=== PATIENT | female | born 1955 | race Caucasian/White ===

== ENCOUNTER → 2019-03-08 12:08 | Outpatient (CLI) | payer MEDICARE, OTHER, SELFPAY ==
[2019-03-08 12:46] LABS: Add Manual Diff / Slide Review NO; Basophils Absolute Auto 100 /uL (0-100); Basophils Percent Auto 0.8 % (0-2); Eosinophils Absolute Auto 100 /uL (0-450); Eosinophils Percent Auto 1.7 % (2-4); Hemoglobin 14.8 g/dL (12.0-16.0); Lymphocytes Absolute Auto 1900 /uL (1100-4500); Lymphocytes Percent Auto 27.7 % (25-40); Mean Corpuscular HGB Conc 35.1 % (30-36); Mean Corpuscular Hemoglobin 29.6 PG (26-34); Mean Corpuscular Volume 84.2 fL (80-100); Monocytes Absolute Auto 600 /uL (0-900); Monocytes Percent Auto 8.3 % (3-14); Neutrophils Absolute Auto 4200 /uL (1500-7000); Neutrophils Percent Auto 61.5 % (50-75); Platelet Count 200 X10^3/uL (150-400); Red Blood Cell Count 4.99 X10^6/uL (4.0-5.2); Red Cell Distribution Width 13.5 % (11.6-14.8); White Blood Cell Count 6.8 X10^3/uL (4.5-11.0)
[2019-03-08 15:11] LABS: Carbon Dioxide 26 mmol/L (22-32); Chloride 103 mmol/L (98-107); HEMOLYSIS < 15 (0-50); Potassium 4.3 mmol/L (3.4-5.1); Sodium 138 mmol/L (137-145)
== END ==
PROVIDERS: Visit Provider Orthopaedic Surgery
DX: M16.10 Unilateral primary osteoarthritis, unspecified hip (principal)
CPT/HCPCS: 36415; 80051; 85025; 93005

== ENCOUNTER 2019-04-11 09:27 | Inpatient (IN) | payer MEDICARE, OTHER, SELFPAY ==
[2019-03-28 14:01] VITALS: BMI 30.1
[2019-04-11] VITALS (11 sets, daily range): BP systolic 101–131; BP diastolic 37–75; PULSE 62–93; RESP 12–18; TEMP 36.3–36.7; O2SAT 92–99; BMI 29.0
[2019-04-11] MEDS: ACETAMINOPHEN 325 MG TABLET 975 MG PO ×3 (10:12→22:10)
[2019-04-11] MEDS: PREGABALIN 75 MG CAPSULE PO (10:12)
[2019-04-11] MEDS: LACTATED RINGERS 1,000 ML 42 ML IV ×2 (10:15→15:24)
--- NOTE | 2019-04-11 11:45 | DI.RAD.S_ITS ---
PROCEDURE: XR PELVIS 1-2V INDICATIONS: post op films TECHNIQUE: 1 view of the lower pelvis acquired. COMPARISON: Preoperative left hip radiographs 03/08/2019. FINDINGS: Bones: Patient is status post left hip total arthroplasty, with hardware components in expected positions. The hip joint appears congruent. The visualized bony structures appear intact. Prominent left superior acetabular osteophyte. Small bone island in the left inferior pubic ramus. Severe joint space loss of the right hip joint. Soft tissues: Overlying postoperative changes are noted. No suspicious soft tissue densities. IMPRESSION: Satisfactory appearance of the left total hip arthroplasty. Dictated by: Trent Mcgill M.D. on 04/11/2019 at 16:49 Approved by: Trent Mcgill M.D. on 04/11/2019 at 16:52
--- NOTE | 2019-04-11 12:31 | PC.NURSE ---
Day shift: Pt not on AC unit at this time.
--- NOTE | 2019-04-11 13:16 | PM.PREOP ---
Pre-operative Note Interval Note History & Physical reviewed/Exam performed by Physician: Yes Changes to H&P: No
[2019-04-11] MEDS: CLINDAMYCIN 900 MG/50 ML PIGGYBACK 50 MG IV (13:54)
[2019-04-11] MEDS: TRANEXAMIC ACID 1,000 MG VIAL 1000 MG INJ ×2 (14:20→15:12)
--- NOTE | 2019-04-11 14:32 | SUR.OPER ---
Lateral on padded OR bed. Gel axillary roll. Arms secured on padded armboard with pillow supporting top arm. Padded hip positioner braces x4 - anterior and posterior chest and pelvis. Additional gel pad used anterior pelvis. Gel pad under bottom leg from knee to foot and secured with tape over sheet.
[2019-04-11] MEDS: MORPHINE 4 MG/ML INJ INJ (14:41)
[2019-04-11] MEDS: KETOROLAC 30 MG/ML VIAL IV (14:41)
[2019-04-11] MEDS: ROPIVACAINE 0.5% PF 5 MG/ML 20ML VIAL 60 ML INJ (14:41)
--- NOTE | 2019-04-11 15:27 | PM.OP.1 ---
Operative Date/Time/Diagnoses Date of procedure: 04/11/19 Time of procedure: 15:27 Pre-op diagnosis: Left hip degenerative joint disease Post-op diagnosis: same Procedure & Clinicians Procedure: Left total hip arthroplasty (CPT code 67613 with assistant professor of criminal justice) Same procedure as scheduled: Yes Indications: Patient is an 63-year-old female with severe left hip DJD. The patient has pain with activities and at rest, limited ambulation and activity tolerance, difficulties with ADLs, and failure of conservative treatment. We have discussed the nature of condition, treatment options, risks and benefits, and patient elects to proceed with total hip arthroplasty and gives informed consent. Surgeon: Luis Enrique Montoya Residential Carpet Installer: Issa Doe Anesthesia Type: General and Spinal Operative Notes Closure Type: primary Specimen(s): none sent Prosthetic devices, grafts, tissues, transplants, or devices: Acetabulum: Leblanc and Nephew R3 acetabular component size 50 mm Femoral component: Leblanc and Nephew Anthology stem size 5 with standard offset Femoral head: 32 mm + 4 Oxinium Estimated Blood Loss (mL): 100 Blood products transfused: none Procedure in detail: After satisfaction induction of anesthetic, and administration of IV antibiotics, the patient was positioned in the lateral decubitus position with all bony prominences well padded and pelvic position secured using a hip coding validator positioning device. Left hip and lower extremity prepped and draped in the usual sterile fashion, 1st dose of intravenous tranexamic acid was administered, then a longitudinal incision was created centered over the greater trochanter and carried sharply through the skin and subcutaneous tissues down to the fascia santos which was divided longitudinally and retracted with a Charnley retractor. External rotators visualize, cut, tagged, and retracted posteriorly, then the capsule was cut in a T-type fashion with the corners tagged and retracted. Hip was dislocated and femoral neck cut made according to preoperative templating. Acetabular retractors then placed, and the acetabular labrum and osteophytes were excised. The acetabulum was then sequentially reamed to 49 mm with an excellent circumferential ream and fit with the trial. The trial component was removed and a permanent size 50 mm Leblanc and Nephew R3 acetabular component was selected, positioned, and impacted with satisfactory position and fixation achieved. Permanent liner was then inserted with the elevated lip directed posteriorly. Soft tissue then removed off the lateral femoral neck in the lateral neck was entered using a box osteotome. T-handled reamers placed down the canal followed by sequential broaching to 5 with the final broach left in place for trial reduction which demonstrated excellent leg length, range of motion, and stability characteristics with a 32 mm + 4 trial ball. The trial and broach were removed, and a permanent size 5 Leblanc and Nephew Anthology stem was selected and inserted with excellent position and fixation achieved. Another trial reduction yielded the above characteristics so the trial ball was exchanged for a permanent 32 mm + 4 Oxinium ball. The hip was irrigated and reduced and excellent leg length range of motion and stability characteristics were achieved and maintained. Periarticular tissues were infiltrated with ropivacaine, morphine, and Toradol. The hip was copiously irrigated, and the capsule repaired with #2 Ethibond, and the piriformis was repaired back to the greater trochanter with the same. Fascia santos closed with interrupted #1 Ethibond sutures, and the subcutaneous tissues were closed in 2 layers of 0 Vicryl and 2 0 Vicryl. Skin was closed with venice and sterile dressings applied. Second dose of tranexamic acid was administered intravenously, and the anesthetic was terminated. Complications: none Post-operative Condition: stable Disposition: PACU Plan for aftercare: Patient will be admitted to the acute care [facility], and anticipate discharge on postop day 1 with follow-up in office in 10-14 days. Outpatient physical therapy will be arranged and patient will continue to observe posterior hip precautions. Patient will continue use of postoperative Lovenox for 10 days postop.
--- NOTE | 2019-04-11 15:50 | SUR.PHASEI ---
Report to YUSEF Byrd
[2019-04-11] MEDS: LACTATED RINGERS 1,000 ML 125 ML IV (17:34)
[2019-04-11] MEDS: IBUPROFEN 400 MG TABLET 800 MG PO ×2 (18:49→23:28)
[2019-04-11] MEDS: CEFAZOLIN 2 GM/100 ML FROZ.PIGGY IV (22:43)
[2019-04-12] MEDS: CEFAZOLIN 2 GM/100 ML FROZ.PIGGY IV (05:46)
[2019-04-12 05:50] VITALS: BP 141/76; PULSE 84; RESP 16; TEMP 36.2; O2SAT 92
[2019-04-12 06:34] LABS: Hematocrit 37.9 % (36-46)
--- NOTE | 2019-04-12 07:27 | PM.DS.1 ---
History of Present Illness History of Present Illness Date Patient Seen: 04/12/19 Time Patient Seen: 07:27 Chief complaint: [id number] Narrative: Patient is an 63-year-old female with severe left hip DJD. The patient has pain with activities and at rest, limited ambulation and activity tolerance, difficulties with ADLs, and failure of conservative treatment. We have discussed the nature of condition, treatment options, risks and benefits, and patient elects to proceed with total hip arthroplasty and gives informed consent. Discharge Providers Provider Date of admission: 04/11/19 09: Discharge Date: 04/12/19 Consults: 04/11/19 16:32 Consult to Discharge Planning Routine Comment: Consult to Physical Therapy Evaluate & Treat Comment: Physician Instructions: post op LUIS CARLOS protocol Consult to Respiratory Therapy Evaluate & Treat Comment: Physician Instructions: Evaluate and treat Discharge provider: Perla Noel PA-C Summary Hospital Course Discharge Diagnosis: s/p total hip arthroplasty barretts esophagus Hospital Course: Christina was admitted for a left total hip arthroplasty with Dr. Montoya. Hospital course was unremarkable. On postop day 1 patient was ready to discharge home. She is eating and voiding without difficulty or assistance. She worked with physical therapy throughout her stay. Lovenox for VTE prophylaxis. Status at Discharge Functional status at discharge: uses cane/walker Exam Vital Signs (past 8 hours): - 04/11/19 23:30 04/12/19 05:50 Temperature 97.3 F L 97.2 F L Pulse Rate 84 84 Respiratory Rate 16 16 Blood Pressure 118/69 141/76 H Pulse Oximetry 96 92 Oxygen Delivery Method Room Air Oxygen Flow Rate 0 Narrative Exam Narrative: Patient lying in bed in NAD. She is alert and oriented X3. Calves are soft, compressible, and nontender bilaterally. Pulses are symmetrical. Dressing CDI. Patient's pain well controlled. She has her medications at home. She has outpatient physical therapy scheduled. Objective Labs Result Diagrams: 04/12/19 06:12 Labs: Laboratory Results - last 24 hr 04/12/19 06:12 Hgb 13.0 Hct 37.9 Discharge Plan Discharge Plan Patient Disposition: Home Discharge Med Rec/Prescriptions Prescriptions: New acetaminophen 325 mg Tablet 975 mg PO TID Qty: 60 RF: 0 enoxaparin [Lovenox] 40 mg/0.4 mL Syringe 40 mg subcut DAILY Qty: 9 RF: 0 Follow up/Referrals: Luis Enrique Montoya MD [Physician] - (Follow up in 10-14 days with CARLOS) Provider Discharge Instructions Cold/Heat Therapy: as needed Skin/Wound/Dressing Care Report to your healthcare provider any signs of infection, such as:: chills, fever and increased pain Visit Report/Discharge Packet Instructions: DI for Hip Replacement, Enoxaparin Injection, Acetaminophen, Hydroxyzine Visit Report Forms: Stroke Signs & Symptoms Discharges patient from system. Discharge Date/Time: 04/12/19 11:09 Quality VTE Deep Vein Thrombosis/Pulmonary Embolism Present on Admission: No
[2019-04-12 08:10] VITALS: BP 137/79; PULSE 80; RESP 15; TEMP 36.2; O2SAT 97
[2019-04-12] MEDS: IBUPROFEN 400 MG TABLET 800 MG PO (08:30)
[2019-04-12] MEDS: ACETAMINOPHEN 325 MG TABLET 975 MG PO (08:31)
[2019-04-12] MEDS: ENOXAPARIN 40 MG/0.4 ML SYRINGE SUBCUT (08:32)
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
--- NOTE | 2019-04-12 11:07 | PC.NURSE ---
Day shift: Pt left unit at approx 1110 in WC to private car. Heading home to [facility] w/ spouse and son. Paperwork is signed and all questions answered. Pt [facility] and has all meds. New script today for Lovenox and Pt was shown and gave her sown injection this AM. Pt has all personal belongings.
--- NOTE | 2019-04-12 11:35 | CM.DANOTE ---
DCP/Assessment: Reviewed chart. Patient is a 63yr old female admitted to [facility] for left LUIS CARLOS performed on 04-11-[address] Montoya. PCP is NED Bailey. Primary payor is 1)Medicare 2)[employer]. Met with patient and spouse/Rich at bedside explained CM/SW role. Patient alert and oriented at time of visit and reports that she will be discharging home today. Patient cleared by therapy and has all needed DME. Patient planning to do outpatient therapy at [facility] in [place]. No identified d/c planning needs at this time. Patient a [facility] patient and has been educated by orthopedic team on next steps and what to expect. P: Home with supportive spouse. Discharge Planning/Care Management CM Discharge Assessment Start: 04/12/19 11:25 Freq: Status: Discharge Protocol: Document 04/12/19 11:26 [facility] (Rec: 04/12/19 11:35 [facility] [id number]) Discharge Planning Assessment Assigned Sheep And Wheat Farmer TIMMY Tena Contact Information Catrachito Kang (spouse) Advance Directives? No History Provided By Patient,Significant Other, Medical Record Has Patient been admitted in last 30 No days? Prior Living Arrangements House Household Members spouse,children Type of transporation used prior to Drives own vehicle admit Independent with ADL's Yes Is patient alert and oriented? Yes Caregiver for Another No DME Already Rented / Owned Bath Bench,FWW / Walker Patient/Family Preference OP PT Therapy Barriers to Discharge No Discharge Plan Home Transportation Arrangement Family to provide transport. Referrals Initiated None needed Whiteboard Updated in Patient Room with Yes name and ext. # of Sheep And Wheat Farmer Review Status In Process Next Review Type Continued Stay Review Pre-Anesthesia Assessment Start: 03/28/19 14:01 Freq: Status: Discharge Protocol: Document 03/28/19 14:01 [facility] (Rec: 03/28/19 14:38 [facility] [id number]) Pre-Anesthesia Assessment Patient Information Reviewed Via Phone Assessment Assessment Completed With Patient Diagnostic Results CBC,EKG,Electrolytes Comment Labs/EKG @ 03/08/19 Primary Care Provider Cassidy Valdez Seen Specialist in Last 12 Months Yes Specialist Seen Orthopedist,Other Comment Accupuncture Primary Language Croatian Braided Rug Maker Required No Height 165.1 cm Weight 82.1 kg Body Mass Index (BMI) 30.1 Hearing Ability Normal Visual Assist Glasses Dentition Type Teeth, Natural Present,Dental Implants Barriers to Learning None Other Aids Yes: immigration guard Hx Anesthesia Reactions Yes: Delayed reaction of shaking with versed, fentanyl s/p EGD Hx Family Anesthesia Reaction No Hx Malignant Hyperthermia No Hx Blood Transfusions No Anesthesia Review Requested No alcohol intake current alcohol intake frequency a few times a month Smoking Status Former smoker how long ago did patient quit smoking Quit when pt was in her early 20's Substance Use Type does not use Pain Present Pain Reported Musculoskeletal Symptoms Abnormal Gait,Difficulty Walking,Joint Pain,Muscle Cramps History of Falling (Recent or History of Yes ) Patient is completely paralyzed or No completely immobile Mental Status Oriented to own ability Is patient on oxygen? No Does patient have DIAZ/SOB No Hx Sleep Apnea No Currently Taking a Beta Rain No Can You Climb a Flight of Stairs Without Yes SOB Hx Chest Pain No Hx SOB No Hx Syncope or Dizziness Yes: Hx syncope age 17 Anti-Coagulant Therapy No Has a Graduate Teaching Assistant No Cardiac Testing No Hx Pacemaker/ICD No Pacemaker Rep Required? No Cardiac Clearance Received Not Applicable Diet Type At Home Regular dysphagia No Bladder Pattern Nocturia Urinary Catheter Present No Hx Urinary Self Catheterization No Diabetes No Patient No Lactating No Hx Drug Resistant Organism No Have you traveled outside the [place] in the last 30 days? Marital Status Lives With spouse,children Prior Living Arrangements House Number of Floors (Floors) One Floor Support System Child/Children,Spouse Does the Patient Have Assistance After Yes Surgery Patient Discharge Plan Description Return Home Comment Pt advised 1 day length of stay per surgeon's office Feels Safe in Current Environment Yes Been Physically Hurt or Threatened By a No Person in Current Environment Do you have thoughts of harming yourself None or others? Are you currently considering suicide? No Do you have a plan to hurt yourself or No Plan others? Do You Have Any Spiritual Beliefs That No May Affect Your HC Choices? Do You Have Any Cultural Practices That No May Affect Your HC Choices? Who Can We Speak to About Patient's Care Family, friends Identifying Code for Release of Patient Declines to issue Information Health Care Proxy/Next of Kin Catrachito () Health Care Proxy Emergency Contact Name Dima (son) Emergency Contact Advance Directives? No: Declines further information PAC Instructions Do not shave/clip surgical site,Durable medical equipment ,Medications to take/avoid, Nasal antibiotic,No ETOH/ petroleum product on skin DOS, NPO,Post-op transportation,Pre -surgical wash,Sturdy shoes/ comfortable clothes,Do not bring valuables and remove jewelry
== END 2019-04-12 11:09 | disposition home or self-care (01) | DRG 470 ==
PROVIDERS: Admitting Provider Orthopaedic Surgery; Visit Provider Orthopaedic Surgery
PROC: 0SRB0JZ Replacement of Left Hip Joint with Synthetic Substitute, Open Approach (ICD-10-PCS; CPT 27130; principal; 2019-04-11 11:45)
DX: M16.12 Unilateral primary osteoarthritis, left hip (principal); Z87.891 Personal history of nicotine dependence
CPT/HCPCS: 36415; 72170; 85014; 85018; 97161; 97165; 97530; 97535; C1776; J0690; J1100; J1650; J1885; J2250; J2270; J2405; J2704; J3010

== ENCOUNTER → 2020-02-15 13:08 | Outpatient (CLI) | payer MEDICARE, OTHER, SELFPAY ==
[2019-04-11 16:33] VITALS: BMI 29.0
[2020-02-15 14:19] LABS: Add Manual Diff / Slide Review NO; Basophils Absolute Auto 0 /uL (0-100); Basophils Percent Auto 0.6 % (0-2); Eosinophils Absolute Auto 100 /uL (0-450); Hematocrit 39.8 % (36-46); Hemoglobin 13.9 g/dL (12.0-16.0); Lymphocytes Absolute Auto 1700 /uL (1100-4500); Lymphocytes Percent Auto 22.1 % (25-40); Mean Corpuscular HGB Conc 34.9 % (30-36); Mean Corpuscular Hemoglobin 29.5 PG (26-34); Mean Corpuscular Volume 84.6 fL (80-100); Monocytes Absolute Auto 500 /uL (0-900); Monocytes Percent Auto 6.7 % (3-14); Neutrophils Absolute Auto 5200 /uL (1500-7000); Neutrophils Percent Auto 69.6 % (50-75); Platelet Count 188 X10^3/uL (150-400); Red Blood Cell Count 4.71 X10^6/uL (4.0-5.2); White Blood Cell Count 7.5 X10^3/uL (4.5-11.0)
[2020-02-15 14:52] LABS: Carbon Dioxide 26 mmol/L (22-32); Chloride 104 mmol/L (98-107); HEMOLYSIS < 15 (0-50); Potassium 4.3 mmol/L (3.4-5.1); Sodium 138 mmol/L (137-145)
== END ==
PROVIDERS: Referring Provider Orthopaedic Surgery; Visit Provider Orthopaedic Surgery
DX: Z01.818 Encounter for other preprocedural examination (principal); Z01.812 Encounter for preprocedural laboratory examination
CPT/HCPCS: 36415; 80051; 85025; 93005

== ENCOUNTER → 2020-03-11 09:43 | Outpatient (CLI) | payer MEDICARE, OTHER, SELFPAY ==
[2019-04-11 16:33] VITALS: BMI 29.0
[2020-03-12 11:13] LABS: COVID19 Sendout Not Detected (Not Detect)
== END ==
PROVIDERS: Visit Provider Nurse Practitioner
DX: Z11.59 Encounter for screening for other viral diseases (principal)
CPT/HCPCS: 87635

== ENCOUNTER 2020-03-14 06:13 | Day surgery (SDC) | payer MEDICARE, OTHER, SELFPAY ==
[2019-04-11 16:33] VITALS: BMI 29.0
[2020-03-07 10:02] VITALS: BMI 28.0
[2020-03-14] VITALS (13 sets, daily range): BP systolic 86–149; BP diastolic 45–82; PULSE 7–83; RESP 11–17; TEMP 35.9–36.7; O2SAT 94–98; BMI 28.0
--- NOTE | 2020-03-14 06:00 | DI.RAD.S_ITS ---
PROCEDURE: XR PELVIS 1-2V INDICATIONS: post op films TECHNIQUE: 1 view of the lower pelvis acquired. COMPARISON: [facility], , XR PELVIS 1-2V, 04/11/2019, 15:42. FINDINGS: Bones: Patient is status post right hip arthroplasty, with hardware components in expected positions. The hip joint appears congruent. The visualized bony structures appear intact. Soft tissues: Overlying postoperative changes are noted. No suspicious soft tissue densities. IMPRESSION: Normal alignment after right total hip arthroplasty, prior left total hip arthroplasty shows no evidence of loosening or disruption. Dictated by: Reyes Bermudez M.D. on 03/14/2020 at 9:47 Approved by: Reyes Bermudez M.D. on 03/14/2020 at 9:48
[2020-03-14] MEDS: ACETAMINOPHEN 325 MG TABLET 975 MG PO (06:50)
[2020-03-14] MEDS: CELECOXIB 200 MG CAPSULE PO (06:51)
[2020-03-14] MEDS: LACTATED RINGERS 1,000 ML 42 ML IV ×2 (07:00→09:30)
--- NOTE | 2020-03-14 07:45 | PM.PREOP ---
Pre-operative Note COVID-19 COVID-19 status: Negative Result date/Date tested (Pos, Neg/Pending): 03/12/20 Interval Note History & Physical reviewed/Exam performed by Physician: Yes Changes to H&P: No
[2020-03-14] MEDS: CLINDAMYCIN 900 MG/50 ML PIGGYBACK 50 MG IV (07:57)
[2020-03-14] MEDS: TRANEXAMIC ACID 1,000 MG VIAL 1000 MG INJ ×2 (08:25→09:10)
[2020-03-14] MEDS: MORPHINE 4 MG/ML INJ INJ (08:39)
[2020-03-14] MEDS: KETOROLAC 30 MG/ML VIAL IV (08:39)
[2020-03-14] MEDS: ROPIVACAINE 0.5% PF 5 MG/ML 20ML VIAL 60 ML INJ (08:39)
--- NOTE | 2020-03-14 09:32 | PM.OP.1 ---
Operative Date/Time/Diagnoses Date of procedure: 03/14/20 Time of procedure: 09:32 Pre-op diagnosis: Right hip degenerative joint disease Post-op diagnosis: same Procedure & Clinicians Procedure: Right total hip arthroplasty (CPT code 50089 with health information assistant) Same procedure as scheduled: Yes Indications: Patient is an 64-year-old female with severe right hip DJD. The patient has pain with activities and at rest, limited ambulation and activity tolerance, difficulties with ADLs, and failure of conservative treatment. We have discussed the nature of condition, treatment options, risks and benefits, and patient elects to proceed with total hip arthroplasty and gives informed consent. Surgeon: Luis Enrique Montoya Computer Systems Architect: Issa Doe Anesthesia Type: Spinal Operative Notes Closure Type: primary Specimen(s): none sent Prosthetic devices, grafts, tissues, transplants, or devices: Acetabulum: Leblanc and Nephew R3 acetabular component size 50 mm Femoral component: Leblanc and Nephew Anthology stem size 6 with standard offset Femoral head: 32 mm + 0 Oxinium Estimated Blood Loss (mL): 100 Blood products transfused: none Procedure in detail: After satisfaction induction of anesthetic, and administration of IV antibiotics, the patient was positioned in the lateral decubitus position with all bony prominences well padded and pelvic position secured using a hip owner consulting engineer positioning device. Right hip and lower extremity prepped and draped in the usual sterile fashion, 1st dose of intravenous tranexamic acid was administered, then a longitudinal incision was created centered over the greater trochanter and carried sharply through the skin and subcutaneous tissues down to the fascia santos which was divided longitudinally and retracted with a Charnley retractor. External rotators visualize, cut, tagged, and retracted posteriorly, then the capsule was cut in a T-type fashion with the corners tagged and retracted. Hip was dislocated and femoral neck cut made according to preoperative templating. Acetabular retractors then placed, and the acetabular labrum and osteophytes were excised. The acetabulum was then sequentially reamed to 49 mm with an excellent circumferential ream and fit with the trial. The trial component was removed and a permanent size 50 mm Leblanc and Nephew R3 acetabular component was selected, positioned, and impacted with satisfactory position and fixation achieved. Permanent liner was then inserted with the elevated lip directed posteriorly. Soft tissue then removed off the lateral femoral neck in the lateral neck was entered using a box osteotome. T-handled reamers placed down the canal followed by sequential broaching to 6 with the final broach left in place for trial reduction which demonstrated excellent leg length, range of motion, and stability characteristics with a 32 mm +0 trial ball. The trial and broach were removed, and a permanent size 6 Leblanc and Nephew Anthology stem was selected and inserted with excellent position and fixation achieved. Another trial reduction yielded the above characteristics so the trial ball was exchanged for a permanent 32 mm +0 Oxinium ball. The hip was irrigated and reduced and excellent leg length range of motion and stability characteristics were achieved and maintained. Periarticular tissues were infiltrated with ropivacaine, morphine, and Toradol. The hip was copiously irrigated, and the capsule repaired with #2 Ethibond, and the piriformis was repaired back to the greater trochanter with the same. Fascia santos closed with interrupted #1 Ethibond sutures, and the subcutaneous tissues were closed in 2 layers of 0 Vicryl and 2 0 Vicryl. Skin was closed with venice and sterile dressings applied. Second dose of tranexamic acid was administered intravenously, and the anesthetic was terminated. Complications: none Post-operative Condition: stable Disposition: PACU Plan for aftercare: Patient will be admitted to the acute care [facility], and anticipate discharge on postop day 1 with follow-up in office in 10-14 days. Outpatient physical therapy will be arranged and patient will continue to observe posterior hip precautions. Patient will continue use of postoperative aspirin for 6 weeks postop for DVT prophylaxis.
--- NOTE | 2020-03-14 10:07 | PC.NURSE ---
Day shift admit note: Received patient from PACU S/P scheduled right LUIS CARLOS scheduled by Dr. Montoya. Awake, alert, and pleasant. On RA sats 98%, SCDs placed upon arrival. VSS and afebrile. Oriented to room, environment, and plan of care. High fall risk precautions initiated, call light within reach.
[2020-03-14] MEDS: LACTATED RINGERS 1,000 ML 125 ML IV ×2 (10:45→18:54)
[2020-03-14] MEDS: CALCIUM CARBONATE 500 MG TAB PO (11:58)
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
[2020-03-14] MEDS: ACETAMINOPHEN 325 MG TABLET 650 MG PO ×2 (15:59→21:31)
[2020-03-14] MEDS: ASPIRIN EC 81 MG TABLET PO (21:31)
[2020-03-15 00:35] VITALS: BP 157/66; PULSE 93; RESP 16; TEMP 36.8; O2SAT 97
[2020-03-15 05:07] LABS: Hematocrit 36.8 % (36-46); Hemoglobin 12.6 g/dL (12.0-16.0)
[2020-03-15 05:24] VITALS: BP 133/71; PULSE 77; RESP 16; TEMP 36.9; O2SAT 97
[2020-03-15] MEDS: ASPIRIN EC 81 MG TABLET PO (07:25)
[2020-03-15] MEDS: ACETAMINOPHEN 325 MG TABLET 650 MG PO (07:25)
[2020-03-15 07:40] VITALS: BP 146/76; PULSE 74; RESP 16; TEMP 36.4; O2SAT 99
--- NOTE | 2020-03-15 09:43 | PT.IPTN ---
Current Diagnoses Unilateral primary osteoarthritis, right hip (03/14/20) Surgery Performed Operation Date: 03/14/20 07:45 Actual Procedures p Total Hip Arthroplasty(Right) - Luis Enrique Montoya MD Physical Therapy Treatment Note M2 PT-IP Current Condition Start: 03/14/20 13:28 Freq: NEEDED Status: Discharge Protocol: Document 03/14/20 14:43 HH (Rec: 03/14/20 15:01 HH [id number]) Physical Therapy Current Condition Current Condition Evaluation Date 03/14/20 Treatment Diagnosis R LUIS CARLOS (posterior approach), difficulty in walking Onset Date 03/14/20 Precautions Posterior Hip Precautions No Hip Flexion > 90 degrees,No Hip Internal Rotation,No Hip Adduction Weight Bearing Status Weight Bearing Status Weight Bear as Tolerated M3 PT-IP Subjective Start: 03/14/20 13:28 Freq: NEEDED Status: Discharge Protocol: Document 03/15/20 09:23 KS (Rec: 03/15/20 13:02 KS [id number]) Subjective Physical Therapy Visit Type Type Treatment Note Visit Start Time 09:23 Visit Stop Time 09:43 Total Visit Minutes 20 Number of ELECTRICAL TECHNOLOGY INSTRUCTOR Visits 1 Physical Therapy Visit Comments Patient Comments Pt agreeable to work w/ PT. Patient Goals to return home with family and participate outpatinet PT M4 PT-IP Mobility and Gait Start: 03/14/20 13:28 Freq: NEEDED Status: Discharge Protocol: Document 03/15/20 09:23 KS (Rec: 03/15/20 13:02 KS [id number]) PT-Bed Mobility Assessment Supine to Sit Supine to Sit Standby Assistance Sit to Supine Sit to Supine Standby Assistance Scooting Scooting to Edge of Bed Standby Assistance PT-Transfer Assessment Sit to and From Stand Sit to and from Stand Standby Assistance,Use of Upper Extremities Equipment Transfer Assistive Device Gait Belt,Front Wheeled Walker Orthotic/Prosthetic Devices or Brace: No Transfers Transfer Destination Bed,Chair Transfer Technique Pt ambulated w/ FWW Transfer Ability Level of Assist Standby Assistance,Contact Guard Assistance,Use of Upper Extremities Comments Mobility Comments Pt was in chair upon arrival from therapy and able to recall all precautions. SBA for sit<>stand w/ FWW. Pt then ambulated ~20 ft to w/c in hallway w/ FWW and CBA. Pt transported to stairs in w/c for energy conservation. Pt then completed 4 steps w/ R rail and FWW folded in L hand w/ proper technique SBA w/ cues for sequencing. Pt was then brought back towards room in w/c. but ambulated lst ~60 ft to room w/ FWW SBA. Pt demonstrated proper use of FWW when ambulating. Pt then transferred into and out of bed SBA and also transferred to chair SBA. Pt states her will be able to assist w/ LE guidance into and out of bed if needed, however she did not require assistance this treatment. Pt transferred to chair w/ FWW SBA. Pt left in chair w/ all needs in reach . She reports having outpaitent therapy set up and feels safe to return home. Gait Assessment Gait Gait Assistance Required: Standby Assistance,1 Person Assist Distance (Feet) 90 Able to Maintain Weight Bearing Status Yes During Gait Assistive Devices Assistive Device Gait Belt,Front Wheeled Walker Orthotic/Prosthetic Devices or Brace: No Gait Deviations General Gait Pattern Antalgic,Decreased Stride Length,Decreased Feet Clearance Factors Limiting Gait Function Factors Limiting Gait Function Decreased Activity Tolerance, Decreased Sensation,Decreased Strength,Limited Range of Motion,Pain Comments Gait Comments see mobility comments. Stair Climbing Assessment Evaluation Level of Assist On Stairs Standby Assistance,1 Person Assistance Devices Stair Climbing Assistive Devices Front Wheel Walker,Right Railing Technique/Endurance Stair Climbing Direction Ascend and Descend Stair Climbing Technique Step Over Step Number of Steps Climbed 3 Stair Climbing Set # Repetitions (reps) 1 Comments Stair Climbing Comments Pt ascended/descended 3 steps w/ R rail and folded FWW in LUE. Pt demonstrated proper stair climbing technique w/ step to gait. Min cues for sequencing. PT-Balance Assessment Sitting Balance and Reactions Static Sitting Balance Ability Normal Dynamic Sitting Balance Ability Normal Standing Balance and Reactions Static Standing Balance Ability Normal Dynamic Standing Balance Ability Good Device Used FWW M5 PT-IP Objective Assessments Start: 03/14/20 13:28 Freq: NEEDED Status: Discharge Protocol: Document 03/14/20 14:43 (Rec: 03/14/20 15:01 [id number]) Orientation Orientation/Cognition Level of Alertness Alert Orientation Name Language Function Ability No Deficits Noted Safety Awareness Understands Safety Issues Memory Description No Deficits Noted Gross Range of Motion Upper Extremity ROM Assessment Within Functional Limits Lower Extremity ROM Assessment Right Impaired Strength Upper Extremity Strength Assessment Within Functional Limits Lower Extremity Strength Assessment Right Impaired Hip 4-/5 Knee 4+/5 Ankle 5/5 Coordination Assessment Gross Coordination Gross Coordination WNL Sensation Assessment Sensation Gross Sensation Right LE Impaired Light Touch Intact Muscle Tone Muscle Tone WNL Yes M6 PT-IP Treatment Start: 03/14/20 13:28 Freq: NEEDED Status: Discharge Protocol: Document 03/15/20 09:23 KS (Rec: 03/15/20 13:02 KS [id number]) Physical Therapy Treatment Education Education Provided Precautions,Weight Bearing Status,Post-Op Packet,Safety M7 PT-IP Assessment and Plan Start: 03/14/20 13:28 Freq: NEEDED Status: Discharge Protocol: Document 03/15/20 09:23 KS (Rec: 03/15/20 13:02 KS [id number]) PT Summary Assessment and Plan Potential Rehabilitation Potential Excellent Status of Condition at Evaluation Stable Summary Impairments Pain,ROM,Strength,Balance, Sensation,Bed Mobility, Transfers,Gait,Activity Tolerance Progress Towards Goals Progressing Toward Goals Assessment Summary Pt is SBA for all mobility, transfers, ambulation, and stair training today. Pt has very good safety awareness and demonstrated proper use of FWW and proper technique while ascending/descending steps. She ambulated ~90 ft w/ FWW and completed 3 steps. Pt states she has outpatient rehab set up and supportive family to assist when needed. Pt will benefit from outpatient rehab to improve strength and ROM. Goals Bed Mobility Goal Standby Assistance Transfer Goal Standby Assistance,Front Wheeled Walker Gait Goal Standby Assistance,Front Wheel Walker Gait Distance 200 Other Goals 4STE with R rail Days to Meet Goals 2 Frequency of Treatment Frequency Of Treatment Twice a Day Treatment Plan Physical Therapy Treatment Plan Bed Mobility Training,Transfer Training,Gait Training, Therapeutic Exercise,Balance Retraining,Post Op Education, Discharge Planning,Hot or Cold Pack,Neuromuscular Re-ed Recommendations To Nursing Amount of Assist Needed 1 Person Assist Discharge Recommendations PT Discharge Recommendations Home with Assistance, Outpatient PT Transportation Needs at Discharge Private Vehicle
--- NOTE | 2020-03-15 11:05 | PC.NURSE ---
Day shift: Pt left AC unit at approx 1105 in WC taken by [facility] [employer]. Her spouse will drive her home. She has MD scripts already. Paperwork is signed and all questions answered. Pt has all personal belonging. Dressing remains CDI. Pt did have a shower today and tolerated it well. Cleared by PT/OT.
== END 2020-03-15 11:07 | disposition home or self-care (01) ==
LOC: OR 06:16 → AC 06:32
PROVIDERS: PCP Physician Assistant Medical; Referring Provider Physician Assistant Medical; Visit Provider Orthopaedic Surgery
PROC: 0SR90JZ Replacement of Right Hip Joint with Synthetic Substitute, Open Approach (ICD-10-PCS; CPT 27130; principal; 2020-03-14 07:45)
DX: M16.11 Unilateral primary osteoarthritis, right hip (principal)
CPT/HCPCS: 27130; 36415; 72170; 85014; 85018; 97116; 97161; 97530; C1776; J0171; J1100; J1885; J2250; J2270; J2274; J2405; J2704

== ENCOUNTER → 2023-08-03 10:00 | Outpatient (CLI) | payer MEDICARE, OTHER, SELFPAY ==
[2020-03-14 10:45] VITALS: BMI 28.0
--- NOTE | 2023-08-03 10:03 | DI.NM.S_ITS ---
PROCEDURE: NM TREASURE PERF SPECT REST & STR Rest and exercise myocardial perfusion SPECT with gated imaging and ejection fraction RADIOPHARMACEUTICAL: 26.3 mCi Tc-99m sestamibi IV at rest and 25.3 mCi Tc-99m sestamibi IV at peak exercise. A [id number]-[id number] was performed. INDICATIONS: CHEST PAIN TECHNIQUE: Radiopharmaceutical was injected at peak stress test, and also at rest. SPECT images were obtained. SPECT myocardial perfusion images were displayed in short axis, horizontal long axis, and vertical long axis views. Gated images were reviewed using Play[employer]ore software. COMPARISON: None. CARDIAC STRESS: A standard Lio treadmill exercise tolerance test was performed by the patient under the supervision of an attending staff. The patient exercised for 6 minutes and 12 seconds; 6.4 METS; functional aerobic impairment (TOSHIA) is -7%. Hemodynamic data: There is normal blood pressure and heart rate response to exercise stress. Patient achieved 106% of maximum predicted heart rate at peak exercise. Symptoms: Patient denied chest pain during exercise. EKG: No diagnostic EKG changes of ischemia; no ectopy. FINDINGS: Raw data: There is good myocardial labeling by radiotracer. No significant motion artifacts. Cuvb-er-kuebs ratio is 0.35 (normal is less than 0.38 for sestamibi tracer, and less than 0.50 for thallium tracer). Left ventricle function: Gated images demonstrate normal left ventricle wall thickening. No segmental wall motion abnormality. No transient ischemic dilation; TID is 0.71 (normal less than 1.3). The left ventricle resting end-diastolic volume is 54 mL. Left ventricle stress ejection fraction is >75%; normal values are above 45%. Myocardial perfusion: There is normal distribution of activity in the left and right ventricular myocardium. No fixed or reversible perfusion defects. IMPRESSION: Low risk study. No evidence of exercise-induced ischemia on ECG or SPECT imaging. Small LV size with hyperdynamic function. Normal hemodynamic response. Good exercise capacity. Dictated by: Luli Ring D.O. on 08/04/2023 at 16:43 Approved by: Luli Ring D.O. on 08/04/2023 at 16:47
== END ==
LOC: NUCM 10:01
PROVIDERS: PCP Physician Assistant Medical; Referring Provider Physician Assistant Medical; Visit Provider Physician Assistant Medical
DX: R07.9 Chest pain, unspecified (principal)
CPT/HCPCS: 78452; 93017; A9502

== ENCOUNTER 2024-05-23 09:23 | Day surgery (SDC) | payer MEDICARE, OTHER, SELFPAY ==
[2020-03-14 10:45] VITALS: BMI 28.0
--- NOTE | 2024-05-23 | PATH_ITS ---
[facility] Accession Number: [id number] No. of containers..02 Tissue . 01 Material submitted: . PART A: colon - ASCENDING POLYP X 2 PART B: colon - DESCENDING POLYP . 01 Diagnosis: A. ASCENDING COLON, POLYP X2: Sessile serrated adenomas. . B. DESCENDING COLON, POLYP: Tubular adenoma. [facility] 05/24/2024 1049 Local . 01 Electronically signed: . Anastasiia Gruber MD, Pathologist NPI- [id number] . 01 Gross description: . Part A: ASCENDING POLYP X 2: Received in formalin are 3 fragment(s) of santana, soft tissue measuring 0.2 x 0.2 x 0.2 cm to 1.0 x 0.5 x 0.2 cm submitted entirely in 1 cassette(s) Part B: DESCENDING POLYP : Received in formalin is 1 fragment(s) of santana, soft tissue measuring 0.3 x 0.3 x 0.2 cm submitted entirely in 1 cassette(s) /NICKIE 05/24/2024 0102 Local . 01 Pathologist provided ICD-10: D12.2, D12.4 . 01 CPT . 460096, [id number] Specimen Comment: A courtesy copy of this report has been sent to [phone] Performed at: [address] [address], [place], [place] [id number] MD Caden Beltran MD Phone: [phone]
[2024-05-23 10:01] VITALS: BP 133/68; PULSE 82; RESP 16; TEMP 36.4; O2SAT 96
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
--- NOTE | 2024-05-23 10:08 | PM.PREOP ---
Pre-operative Note Interval Note History & Physical reviewed/Exam performed by Physician: Yes Changes to H&P: No ASA Class (for procedural sedation): I
--- NOTE | 2024-05-23 11:24 | PM.OP.COLON ---
Operative Date/Time/Diagnoses Date of procedure: 05/23/24 Time of procedure: 11:24 Pre-op diagnosis: Colon polyp history Post-op diagnosis: same Procedure & Clinicians Study performed: Colonoscopy with hot snare polypectomy with submucosal injection and cold snare polypectomy. Same procedure as scheduled: Yes Indications: Personal history of colon polyps Surgeon: Wilmer Agosto Procedure Notes SCOAP/Timeout: Done Procedure in detail: After the risks and benefits were explained, written and verbal informed consent was obtained. The patient was brought into the procedure room and placed into the left lateral decubitus position. Please see anesthesia notes for sedation details. Digital rectal examination was accomplished. The scope was introduced into the patient and advanced under direct visualization to the cecum as identified by the appendiceal orifice and ileocecal valve. The scope was slowly withdrawn to carefully examine the mucosa for any defects or lesions. Comprehensive imaging was accomplished throughout the rectum including the dentate line. The colon was decompressed, the scope was then removed from the patient who tolerated the procedure reasonably well but she did some coughing from excess excretions at the very start of sedation. Pediatric colonoscope Bowel prep adequate Scope withdrawal time: 27 minutes Sedation minutes: 36 Complications: none Impression: There was a diminutive colon polyp in the descending colon removed with cold snare. In the ascending colon there was a flat 6 mm polyp removed with hot snare. There was a 2nd slightly larger 8-9 mm sessile polyp that was lifted with submucosal saline injection prior to hot snare polypectomy. Two Endoclips were used to close the defect following polypectomy to prophylax against any potential hemorrhagic complications. Scant diverticulosis was identified in the left colon. Endoscopic diagnosis 1. Colon polyps 2. Scant diverticulosis Post-procedure Plan for aftercare: 1. Await histology 2. Repeat colonoscopy timing will be contingent on histopathology results. Disposition: PACU
[2024-05-23 11:28] VITALS: BP 99/64; PULSE 74; RESP 16; TEMP 36.1; O2SAT 95
[2024-05-23 11:33] VITALS: BP 107/65; PULSE 67; RESP 17; O2SAT 93
[2024-05-23 11:38] VITALS: BP 103/66; PULSE 85; RESP 20; O2SAT 95
[2024-05-23 11:42] VITALS: BP 108/68; PULSE 71; RESP 20; TEMP 36.3; O2SAT 96
[2024-05-23 11:46] VITALS: BP 107/70; PULSE 68; RESP 17; TEMP 36.1; O2SAT 96
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
== END 2024-05-23 12:05 | disposition home or self-care (01) ==
PROVIDERS: PCP Physician Assistant Medical; Referring Provider Internal Medicine Gastroenterology; Visit Provider Internal Medicine Gastroenterology
PROC: 0DJD8ZZ Inspection of Lower Intestinal Tract, Via Natural or Artificial Opening Endoscopic (ICD-10-PCS; CPT 45378; principal; 2024-05-23 11:00)
DX: Z12.11 Encounter for screening for malignant neoplasm of colon (principal); Z86.0100 Personal history of colon polyps, unspecified; K57.30 Diverticulosis of large intestine without perforation or abscess without bleeding; D12.2 Benign neoplasm of ascending colon; D12.4 Benign neoplasm of descending colon
CPT/HCPCS: 45381; 45385; J2405; J2704